=== PATIENT | male | born 1960 | race Caucasian/White ===

== ENCOUNTER 2022-12-24 10:37 | Emergency (ER) | payer OTHER ==
[~2022-12-24] VITALS: Ht 177.8 cm; Wt 72.7 kg
[~2022-12-24 10:37] MED LIST: ASPIRIN E.C. 8181 MG PO; BRILINTA90 MG PO; BUSPAR10 MG PO; COREG 3.123.125 MG/T PO; CYANOCOBAL1000 MCG/M IM; LIPITOR 80MG80 MG PO; MICARDIS20 MG PO; NITROSTAT0.4 MG/TAB SL; PRINIVIL2.5 MG PO; PROTONIX 40MG T40 MG PO; RANEXA1000 MG PO; RESTORIL 1515 MG/CAP PO; TOPAMAX50 MG PO; XANAX .25M0.25 MG/TA PO
[2022-12-24 11:24] VITALS: TEMP 97.8
[2022-12-24 11:54] LABS: BASO # 0.1 K/mm3 (0.0-0.2); BASO % 1.1 % (0.0-2.0); EOS # 0.1 K/mm3 (0.0-0.7); EOS % 1.1 % (0.0-4.0); GRAN % 71.9 % (42.2-75.2); HEMOGLOBIN 12.6 g/dl (13.5-18.0); LYMPH # 0.9 K/mm3 (1.2-3.4); LYMPH % 15.6 % (20.0-51.0); MEAN CELL VOLUME 101 fl (80.0-100.0); MEAN CORPUSCULAR HEMOGLOBIN 35 pg (27-31); MEAN CORPUSCULAR HGB CONC 35 g/dl (33.0-37.0); MEAN PLATELET VOLUME 9.2 fl (7.4-10.4); MONO # 0.5 K/mm3 (0.1-0.6); PLATELET COUNT 203 K/mm3 (130-400); RED BLOOD COUNT 3.59 M/mm3 (4.20-5.60); REDCELL DISTRIBUTION WIDTH-CV 12.1 % (11.5-14.5)
[2022-12-24 11:56] LABS: HEMATOCRIT 36.3 % (42.0-52.0)
[2022-12-24 12:13] LABS: ALANINE AMINOTRANSFERASE 14 U/L (0-55); ALBUMIN 3.7 gm/dL (3.4-4.8); ALKALINE PHOSPHATASE 59 U/L (40-150); ANION GAP 11 mmol/L (7-16); AST,SGOT 12 U/L (5-34); BILIRUBIN,TOTAL 0.4 mg/dL (0.2-1.2); BLOOD UREA NITROGEN 18 mg/dL (8-26); CALCIUM 8.8 mg/dL (8.4-10.2); CARBON DIOXIDE 15 mmol/L (23-31); CHLORIDE 114 mmol/L (98-107); CREATININE, serum 1.18 mg/dL (0.72-1.25); GLUCOSE 113 mg/dL (70-99); LIPASE 44 U/L (8-78); POTASSIUM 3.8 mmol/L (3.5-4.5); SODIUM 140 mmol/L (136-145); TOTAL PROTEIN 6.7 gm/dL (6.2-8.1)
[2022-12-24 12:21] LABS: TROPONIN-I < 0.010 ng/mL (0.00-0.033)
[2022-12-24 14:28] LABS: COLLECTION METHOD CATHETER
[2022-12-24 14:48] LABS: MUCOUS Present (NOT PRESENT); PH 5.5 (5.0-8.5); SQUAMOUS EPITHELIAL 0-2 /hpf (0-10); URINE APPEARANCE Clear (CLEAR/HAZY); URINE BLOOD Negative (NEGATIVE); URINE COLOR Yellow (YELLOW); URINE GLUCOSE Negative (NEGATIVE); URINE KETONE Negative (NEGATIVE); URINE NITRATE Negative (NEGATIVE); URINE PROTEIN(semi-quant) Negative (NEGATIVE); URINE RBC 0-2 /hpf (0-2); URINE UROBILINOGEN 0.2 E.U/dL (0.2-1.0)
[2022-12-24 15:27] VITALS: BP 125/73; PULSE 68
== END 2022-12-24 15:30 | disposition home or self-care (01) ==
LOC: COL.ER 10:37
PROVIDERS: Emergency Medicine
DX: G04.90 Encephalitis and encephalomyelitis, unspecified (principal); Z87.891 Personal history of nicotine dependence
CPT/HCPCS: J7030; Q9967

== ENCOUNTER 2023-01-12 09:45 | Outpatient (RCR) | payer OTHER | END 2023-01-13 | disposition home or self-care (01) | LOC: WSST | DX: R48.9 Unspecified symbolic dysfunctions (principal); R41.3 Other amnesia; S06.9X9S Unspecified intracranial injury with loss of consciousness of unspecified duration, sequela ==

== ENCOUNTER 2023-01-21 09:45 | Outpatient (RCR) | payer OTHER | END 2023-02-12 | disposition home or self-care (01) | LOC: WSST | DX: R41.3 Other amnesia (principal); R48.9 Unspecified symbolic dysfunctions; S06.899S Other specified intracranial injury with loss of consciousness of unspecified duration, sequela ==

== ENCOUNTER 2023-03-12 10:15 | Outpatient (RCR) | payer OTHER ==
[2023-02-24] VITALS (27 sets, daily range): O2SAT 96–99
[~2023-03-12 10:15] MED LIST changes: +AMITRIPTYLINE H25 M1 PO; +ASPRUZYO SPRI1000 MG PO; +CARDENE 20MG CA20 M1 PO; +IMITREX 25MG TA25 MG PO; +KLONOPIN 0.5MG0.5 MG PO; +QULIPTA60 MG PO
== END 2023-03-15 | disposition home or self-care (01) ==
LOC: MKS.ESL.PT
DX: F07.81 Postconcussional syndrome (principal); R41.3 Other amnesia; R48.9 Unspecified symbolic dysfunctions; S06.89AS Other specified intracranial injury with loss of consciousness status unknown, sequela

== ENCOUNTER 2023-04-14 10:30 | Outpatient (RCR) | payer OTHER ==
[2023-02-24 01:38] VITALS: O2SAT 98
== END 2023-04-15 | disposition home or self-care (01) ==
LOC: MKS.ESL.PT
DX: S09.90XD Unspecified injury of head, subsequent encounter (principal); F07.81 Postconcussional syndrome; R41.3 Other amnesia; H81.90 Unspecified disorder of vestibular function, unspecified ear

== ENCOUNTER 2023-05-12 09:45 | Outpatient (RCR) | payer OTHER ==
[2023-02-24 01:38] VITALS: O2SAT 98
[~2023-05-12 09:45] MED LIST changes: +JARDIANCE10 PO; +PROBIOTIC ACID1 EAC3 PO; +RANEXA 500MG T500 MG PO
== END 2023-05-14 | disposition home or self-care (01) ==
LOC: WSST
DX: S09.90XD Unspecified injury of head, subsequent encounter (principal); F07.81 Postconcussional syndrome; R41.3 Other amnesia; H81.90 Unspecified disorder of vestibular function, unspecified ear